=== PATIENT | female | born 1975 | race Caucasian/White ===

== ENCOUNTER 2020-08-25 10:41 | Emergency (ER) | payer OTHER, SELFPAY ==
[2020-08-25 10:46] VITALS: BP 102/65; PULSE 60; RESP 16; TEMP 36.8; O2SAT 97; BMI 21.6
--- NOTE | 2020-08-25 10:48 | DI.RAD.S_ITS ---
PROCEDURE: XR HAND LT MIN 3V INDICATIONS: 4th and 5th digit crush injury TECHNIQUE: 3 views of the hand(s) acquired. COMPARISON: None. FINDINGS: Bones: Nondisplaced fracture through the 4th phalangeal tuft. Carpal bones are normally aligned. No suspicious bony lesions. Soft tissues: No suspicious soft tissue calcifications. IMPRESSION: Nondisplaced fracture through the 4th phalangeal tuft. Dictated by: Zesu Deal M.D. on 08/25/2020 at 10:05 Approved by: Zeus Deal M.D. on 08/25/2020 at 10:07
--- NOTE | 2020-08-25 10:52 | ED.UPPEXIN ---
HPI - Extremity Injury (Upper) General Chief Complaint: Extremity Injury, Upper Stated Complaint: hurt left finger and pinky finger Time Seen by Provider: 08/25/20 10:49 Source: patient Mode of arrival: Ambulatory Limitations: no limitations History of Present Illness HPI narrative: Patient is a 44-year-old female who presents with left 4th finger pain which started yesterday. She actually has been working quite hard getting a rock wall and using an excavator have. However yesterday she picked up a very heavy rock and smashed most of her 4th and 5th finger. She is noticing some bruising it is extremely tender it hurts to move. She has a little bit of numbness at the very tip. She works as a massage therapist, and is right-hand dominant MD complaint: injury to: left and finger (4th) Related Data Previous Rx's Medication Instructions Recorded hydrocodone-acetaminophen 1 tab PO Q6H PRN #10 tab 08/25/20 Review of Systems Review of Systems Narrative: GENERAL: Denies chills,fever HEENT: Denies throat pain RESPIRATORY: Denies dyspnea, cough, wheezing CARDIOVASCULAR: Denies chest pain, palpitations GASTROINTESTINAL: Denies nausea, vomiting MUSCULOSKELETAL: See HPI SKIN: No rash, no laceration, no pruritus NEUROLOGIC: Denies weakness, dizziness, headache, numbness 8 point review of systems is negative except for those stated above and HPI Patient History Medical History Patient denies medical problems Exam Initial Vital Signs Initial Vital Signs: Vital Signs Temperature 98.2 F 08/25/20 10:46 Pulse Rate 60 08/25/20 10:46 Respiratory Rate 16 08/25/20 10:46 Blood Pressure 102/65 08/25/20 10:46 Pulse Oximetry 97 08/25/20 10:46 GENERAL: Well-appearing, well-nourished and in no acute distress. CARDIOVASCULAR: peripheral pulses in tact, cap refill <2 sec RESPIRATORY: No respiratory distress, speaks in full sentences without difficulty EXTREMITIES: Normal range of motion, no clubbing or edema. Neurovascularly intact Left hand 4th finger significant contusion is over D IP in nail beds but no subungual hematoma is. Slight numbness the distal tip. Pain with flexion of PIP PIP and MCP. No tenderness over the MCP. 5th finger she is able to move she has a small abrasion on the palmar side of the PIP. No laceration no drainage NEUROLOGICAL: Cranial nerves II through XII grossly intact. Normal gait and speech. SKIN: Warm, dry, no petechiae, no rashes or lesions. Course Orders Ordered: ED Orders 08/25/20 10:48 XR hand LT min 3V Stat Vital Signs Vital signs: Vital Signs - 8 hr 08/25/20 10:46 Temperature 98.2 F Pulse Rate 60 Respiratory Rate 16 Blood Pressure 102/65 Pulse Oximetry 97 MDM - Extremity Injury (Upper) Imaging Data Extremity x-ray #1: Radiologist's Impression: PROCEDURE: XR HAND LT MIN 3V INDICATIONS: 4th and 5th digit crush injury TECHNIQUE: 3 views of the hand(s) acquired. COMPARISON: None. FINDINGS: Bones: Nondisplaced fracture through the 4th phalangeal tuft. Carpal bones are normally aligned. No suspicious bony lesions. Soft tissues: No suspicious soft tissue calcifications. IMPRESSION: Nondisplaced fracture through the 4th phalangeal tuft. Dictated by: Zeus Deal M.D. on 08/25/2020 at 10:05 Discharge Plan Departure Patient Disposition: Home Clinical Impression: Fracture of phalanx of ring finger Qualifiers: Encounter type: initial encounter Fracture type: closed Phalanx: distal Fracture alignment: nondisplaced Laterality: left Qualified Code(s): S62.665A - Nondisplaced fracture of distal phalanx of left ring finger, initial encounter for closed fracture Instructions: Finger Fracture Activity Restrictions/Additional Instructions: *You have been diagnosed with left ring finger tuft fracture *What to do: You are broken at the very tip. Keep finger in splint ice 20-30 minutes at a time. This will likely take 4-6 weeks to heal completely *Continue to take medications as directed Ibuprofen 800 mg every 8 hours if needed for aiid-kj-vpwplvve pain Tylenol 650 mg every 4-6 hours if needed for naix-mn-szbytpky pain Brewster 1 tablet every 6 hours if needed for severe pain *Follow up with your primary care provider in 2-3 days, he may also try to follow up with orthopedics in 1-2 weeks *Return to ER if you should have increased swelling, decreased range of motion or any new, worsening or concerning symptoms CONTROLLED SUBSTANCE DISCHARGE (Narcotoic/benzodiazepine/Flexeril/Phenergan) 1. You have been prescribed narcotic medications, it does have acetaminophen/Tylenol/paracetamol in it, DO NOT TAKE MORE THAN 4,00mg in 24 hours of Tylenol. TRAMADOL DOES NOT CONTAIN TYLENOL 2. Please understand that we cannot provide further refills of narcotics, benzodiazepines or controlled substances through the ED and her pain management will need to be through your provider. 3. While on these medications you cannot drive or operate heavy machinery. 4. You cannot sign legal documents or perform any duties such as this. 5. As long as you're taking opiate pain medications he should also be taking a stool softener such as Colace, Dulcolax, MiraLAX or prune juice, to help avoid constipation. Prescriptions: New hydrocodone-acetaminophen 5-325 mg tablet 1 tab PO Q6H PRN (Reason: pain) Qty: 10 RF: 0 Referrals: [facility] [Provider Group] [facility] [Outside]
== END 2020-08-25 11:37 | disposition home or self-care (01) ==
PROVIDERS: Emergency Provider Emergency Medicine
DX: S62.665A Nondisplaced fracture of distal phalanx of left ring finger, initial encounter for closed fracture (principal); W23.0XXA Caught, crushed, jammed, or pinched between moving objects, initial encounter
CPT/HCPCS: 29130; 73130; 99283

== ENCOUNTER 2020-09-23 09:55 | Emergency (ER) | payer OTHER, SELFPAY ==
[2020-09-23 10:09] VITALS: BP 119/75; PULSE 52; RESP 14; TEMP 36.2; O2SAT 99
--- NOTE | 2020-09-23 10:12 | DI.RAD.S_ITS ---
PROCEDURE: XR FOOT RT MIN 3V INDICATIONS: heavy trailer vs foot TECHNIQUE: 3 views of the foot were acquired. COMPARISON: None. FINDINGS: Bones: No fractures or dislocations. No suspicious bony lesions. Soft tissues: No tibiotalar joint effusion. Achilles tendon appears normal. IMPRESSION: No fracture. If the patient's symptoms do not improve recommend followup radiographs in 10 days to assess for healing sclerosis/occult injury. Dictated by: Clay Caceres M.D. on 09/23/2020 at 12:07 Approved by: Clay Caceres M.D. on 09/23/2020 at 12:08
[2020-09-23] MEDS: ACETAMINOPHEN 325 MG TABLET 975 MG PO (11:38)
--- NOTE | 2020-09-23 11:39 | ED.LOWEXIN ---
HPI - Extremity Injury (Lower) General Chief Complaint: Extremity Injury, Lower Stated Complaint: Dropped Trailer full of gravel on right foot Time Seen by Provider: 09/23/20 11:36 Source: patient Mode of arrival: Ambulatory Limitations: no limitations History of Present Illness HPI Narrative: 45-year-old female here for evaluation of right foot pain. She states that yesterday she had a trailer full of gravel drop in hit the top of her right foot. Since that time she has had discomfort on the top the right foot. No other injuries from the event. It does hurt to walk in for her to move around. Related Data Home Medications Medication Instructions Recorded Confirmed No Known Home Medications 09/23/20 09/23/20 Allergies Allergy/AdvReac Type Severity Reaction Status Date / Time No Known Drug Allergies Allergy Verified 09/23/20 10:11 Review of Systems Constitutional Constitutional: Denies fever(s) and Denies headache(s) Eyes Eyes: Denies blurry vision ENT Ears, Nose, Mouth, and Throat: Denies headache(s) Musculoskeletal Comments: Right foot pain Integumentary/Breasts Skin/Breast: Denies rash Neurologic Neurologic: Denies behavioral changes and Denies headache(s) Psychiatric Psychiatric: Denies behavioral changes Hematologic/Lymphatic On Anticoagulants: No Allergic/Immunologic Allergic/Immunologic: Denies urticaria Patient History Medical History Patient denies medical problems Social History Smoking Status: Never smoker Smoking Status: Never smoker alcohol intake frequency: 0-2 drinks per day Substance Use Type: does not use Exam Initial Vital Signs Initial Vital Signs: Vital Signs Temperature 97.2 F L 09/23/20 10:09 Pulse Rate 52 L 09/23/20 10:09 Respiratory Rate 14 09/23/20 10:09 Blood Pressure 119/75 09/23/20 10:09 Pulse Oximetry 99 09/23/20 10:09 Const General: cooperative and comfortable Limitations: mental status not altered HENMT Head: normal to inspection and normocephalic Resp Effort & Inspection: normal respiratory effort Cardio Rate: regular rate Skin Other: Bruising on top of foot Neuro General: patient alert and patient awake Cognition: normal cognition Sensory Exam: no sensory deficits noted Extrem Other: Tenderness on the top of the midfoot otherwise right foot and ankle exam unremarkable. Psych Appearance: grossly normal and well kempt Course Orders Ordered: ED Orders 09/23/20 10:12 XR foot RT min 3V Stat Discontinued Medications Acetaminophen (Acetaminophen 325 Mg Tablet) 975 mg PO NOW ONE Stop: 09/23/20 11:34 Last Admin: 09/23/20 11:38 Dose: 975 mg Documented by: PRASHANT Vital Signs Vital signs: Vital Signs - 8 hr 09/23/20 10:09 Temperature 97.2 F L Pulse Rate 52 L Respiratory Rate 14 Blood Pressure 119/75 Pulse Oximetry 99 MDM - Extremity Injury (Lower) Imaging Data Extremity x-ray #1: Radiologist's Impression: [address] [id number] ReportSigned Patient: Sandrita WatersMR#: [id number]: [id number]:[id number]/Sex: 45 / FDate of Service: 09/23/20Loc: EDAccession Number: [id number] Procedure: XR foot RT min 3V Ordering Provider: Fredy Rivera D.O. PROCEDURE: XR FOOT RT MIN 3V INDICATIONS: heavy trailer vs foot TECHNIQUE: 3 views of the foot were acquired. COMPARISON: None. FINDINGS: Bones: No fractures or dislocations. No suspicious bony lesions. Soft tissues: No tibiotalar joint effusion. Achilles tendon appears normal. IMPRESSION: No fracture. If the patient's symptoms do not improve recommend followup radiographs in 10 days to assess for healing sclerosis/occult injury. Dictated by: Clay Caceres M.D. on 09/23/2020 at 12:07 Approved by: Clay Caceres M.D. on 09/23/2020 at 12:[address] [facility] Narrative Medical decision making narrative: There were no fractures on the x-ray. She was neurovascularly intact. No indication for splinting or crutches. She had to go to work so she did leave prior to receiving her discharge paperwork although she was told there was no fractures on the x-ray by nursing staff. Discharge Plan Departure Patient Disposition: Home Clinical Impression: Contusion of foot, right Instructions: How To Perform RICE (Rest, Ice, Compress, Elevate) Activity Restrictions/Additional Instructions: NO restriction on your activity. Contact your primary care primary care provider for follow up. Prescriptions: No Action No Known Home Medications RF: 0
== END 2020-09-23 12:22 | disposition home or self-care (01) ==
PROVIDERS: Emergency Provider Emergency Medicine
DX: S90.31XA Contusion of right foot, initial encounter (principal); W22.8XXA Striking against or struck by other objects, initial encounter
CPT/HCPCS: 73630; 99283

== ENCOUNTER 2022-10-29 11:09 | Emergency (ER) | payer OTHER, SELFPAY ==
[2022-10-29 11:12] VITALS: BP 96/58; PULSE 81; RESP 18; TEMP 37.3; O2SAT 99; BMI 22.6
--- NOTE | 2022-10-29 11:19 | DI.RAD.S_ITS ---
PROCEDURE: XR KNEE LT 3V INDICATIONS: fall, pain with weight bearing TECHNIQUE: 3 views of the knee were acquired. COMPARISON: None. FINDINGS: Bones: No fractures or dislocations. No suspicious bony lesions. Soft tissues: No joint effusion. No suspicious soft tissue calcifications. IMPRESSION: No acute abnormality of the left knee. Dictated by: Eric Acevedo M.D. on 10/29/2022 at 12:06 Approved by: Eric Acevedo M.D. on 10/29/2022 at 12:08
[2022-10-29] MEDS: KETOROLAC 10 MG TABLET PO (12:06)
--- NOTE | 2022-10-29 12:09 | DI.CT.S_ITS ---
PROCEDURE: CT LE LT W CON INDICATIONS: Left knee impact injury with twist, tibial plateau fx? TECHNIQUE: Noncontrast 1-1.5 mm axial sections acquired from the mid-patella to the proximal tibia, with coronal and sagittal reformats. COMPARISON: None. FINDINGS: Image quality: Excellent. Bones: No fracture or dislocation. Small tricompartmental osteophytes. Medial joint space narrowing. Subchondral sclerosis of the medial joint space. Soft tissues: Small suprapatellar joint effusion. IMPRESSION: 1. No acute fracture. 2. Tricompartmental degenerative changes with medial joint space narrowing. New line 3. Small suprapatellar joint effusion suggests possible internal derangement. Consider MRI. Dictated by: Eric Acevedo M.D. on 10/29/2022 at 13:14 Approved by: Eric Acevedo M.D. on 10/29/2022 at 13:17
--- NOTE | 2022-10-29 12:11 | ED_ITS ---
HPI - Extremity Injury (Lower) <TERI Craig - Last Filed: 10/29/22 13:35> General Chief Complaint: Extremity Injury, Lower Stated Complaint: fell LT knee bleeding head hit ground Time Seen by Provider: 10/29/22 11:54 Source: patient Mode of arrival: Wheelchair History of Present Illness HPI Narrative: This is a 47-year-old female who was out on the trail running when she had a trip and fall down onto her left knee and states that her left knee twisted when she fell and has had pain in her left knee and radiating up from her knee since the injury. She complains of swelling, abrasion, does not remember when her last tetanus was, states it is too painful to walk on and she has pain over the medial and lateral aspect. She denies numbness or tingling, weakness but states that it is very painful to try move. She denies history of injuries to this joint in the past. Related Data Previous Rx's Medication Instructions Recorded hydrocodone 5 mg-acetaminophen 325 1 tab PO BID PRN pain #10 tabs 10/29/22 mg tablet ibuprofen 600 mg tablet 600 mg PO Q8H PRN fever or pain 10/29/22 #30 tabs methocarbamol 500 mg tablet 500 mg PO TID PRN muscle spasm #20 10/29/22 tabs Allergies Allergy/AdvReac Type Severity Reaction Status Date / Time latex Allergy Rash Verified 10/29/22 11:18 Review of Systems <TERI Craig - Last Filed: 10/29/22 13:35> Review of Systems ROS Unobtainable: All systems reviewed & are unremarkable except as noted in HPI and below Patient History <TERI Craig - Last Filed: 10/29/22 13:35> Medical History Patient denies medical problems Social History Smoking Status: Never smoker Smoking Status: Never smoker alcohol intake frequency: 0-2 drinks per day Substance Use Type: does not use Exam <TERI Craig - Last Filed: 10/29/22 13:35> Narrative Exam Narrative: Reviewed vitals signs and nursing notes. General: Pleasant, sitting upright, in no acute distress, well groomed, afebrile HEENT: symmetrical facial expressions, moist mucous membranes, neck is supple MSK: moves all extremities, no weakness, normal tone, varus and valgus stress test with increased pain on valgus testing over the MCL and pain over the LCL during this same movement, negative Melinda's, no joint pain with axial load, range of motion is limited due to pain, palpable suprapatellar effusion, abr asion over the left knee, palpable patellar tendon, no laceration, icing knee at this time Skin: brisk capillary refill, without rash or wound Neuro: clear speech and normal cognition, A&O x3, GCS 15, no focal motor or sensation deficits Initial Vital Signs Initial Vital Signs: Vital Signs Temperature 99.2 F 10/29/22 11:12 Pulse Rate 81 10/29/22 11:12 Respiratory Rate 18 10/29/22 11:12 Blood Pressure 96/58 L 10/29/22 11:12 Pulse Oximetry 99 10/29/22 11:12 Oxygen Delivery Method Room Air 10/29/22 11:12 <Kana Bruno DO - Last Filed: 10/30/22 08:49> Initial Vital Signs Initial Vital Signs: Vital Signs Temperature 99.2 F 10/29/22 11:12 Pulse Rate 81 10/29/22 11:12 Respiratory Rate 18 10/29/22 11:12 Blood Pressure 96/58 L 10/29/22 11:12 Pulse Oximetry 99 10/29/22 11:12 Oxygen Delivery Method Room Air 10/29/22 11:12 Procedures <TERI Craig - Last Filed: 10/29/22 13:35> Orthopedic Splinting/Casting Injury #1: Side: left Lower Extremity Injury Location: knee Lower Extremity Immobilizer: knee immobilizer Post splinting neuro exam: intact Post splinting vascular exam: intact Placed by: Nursing Course <TERI Craig - Last Filed: 10/29/22 13:35> Orders Ordered: Discontinued Medications Hydrocodone Bitart/Acetaminophen (Hydrocodone/Acet 5/325 Tablet) 1 tab PO NOW ONE Stop: 10/29/22 12:06 Last Admin: 10/29/22 12:24 Dose: 1 tab Documented By: KB Bacitracin (Bacitracin Oint 0.9 Gm Pckt) 1 applic TOP NOW ONE Stop: 10/29/22 12:06 Last Admin: 10/29/22 12:24 Dose: 1 applic Documented By: SOHAM Diphtheria/Tetanus/Acell Pertussis (Tet,Diph,Pertuss(Acell),Vac/Pf 0.5 Ml Syringe) 0.5 ml IM .ONCE ONE Stop: 10/29/22 12:06 Last Admin: 10/29/22 12:24 Dose: 0.5 ml Documented By: SOHAM Ketorolac Tromethamine (Ketorolac 10 Mg Tablet) 10 mg PO NOW ONE Stop: 10/29/22 12:00 Last Admin: 10/29/22 12:06 Dose: 10 mg Documented By: SOHAM Lidocaine/Prilocaine (Lidocaine/Prilocaine 5 Gm) 5 gm TOP NOW ONE Stop: 10/29/22 12:16 Last Admin: 10/29/22 12:24 Dose: 5 gm Documented By: SOHAM Vital Signs Vital signs: Vital Signs - 8 hr 10/29/22 11:12 10/29/22 13:16 Temperature 99.2 F Pulse Rate 81 63 Respiratory Rate 18 18 Blood Pressure 96/58 L 125/58 L Pulse Oximetry 99 95 Oxygen Delivery Method Room Air Room Air <Kana Bruno DO - Last Filed: 10/30/22 08:49> Orders Ordered: Discontinued Medications Hydrocodone Bitart/Acetaminophen (Hydrocodone/Acet 5/325 Tablet) 1 tab PO NOW ONE Stop: 10/29/22 12:06 Last Admin: 10/29/22 12:24 Dose: 1 tab Documented By: SOHAM Bacitracin (Bacitracin Oint 0.9 Gm Pckt) 1 applic TOP NOW ONE Stop: 10/29/22 12:06 Last Admin: 10/29/22 12:24 Dose: 1 applic Documented By: SOHAM Diphtheria/Tetanus/Acell Pertussis (Tet,Diph,Pertuss(Acell),Vac/Pf 0.5 Ml Syringe) 0.5 ml IM .ONCE ONE Stop: 10/29/22 12:06 Last Admin: 10/29/22 12:24 Dose: 0.5 ml Documented By: SOHAM Ketorolac Tromethamine (Ketorolac 10 Mg Tablet) 10 mg PO NOW ONE Stop: 10/29/22 12:00 Last Admin: 06/08/23 12:06 Dose: 10 mg Documented By: SOHAM Lidocaine/Prilocaine (Lidocaine/Prilocaine 5 Gm) 5 gm TOP NOW ONE Stop: 10/29/22 12:16 Last Admin: 10/29/22 12:24 Dose: 5 gm Documented By: SOHAM Vital Signs Vital signs: Vital Signs - 8 hr 10/29/22 11:12 10/29/22 13:16 Temperature 99.2 F Pulse Rate 81 63 Respiratory Rate 18 18 Blood Pressure 96/58 L 125/58 L Pulse Oximetry 99 95 Oxygen Delivery Method Room Air Room Air MDM - Extremity Injury (Lower) <Sherry Cox, [facility] - Last Filed: 10/29/22 13:35> Imaging Data Extremity x-ray #1: Radiologist's Impression: PROCEDURE:? XR KNEE LT 3V ? INDICATIONS:? fall, pain with weight bearing ? TECHNIQUE:? 3 views of the knee were acquired.? ? COMPARISON:? None. ? FINDINGS:? ? Bones:? No fractures or dislocations.? No suspicious bony lesions.? ? Soft tissues:? No joint effusion.? No suspicious soft tissue calcifications.? ? ? IMPRESSION:? No acute abnormality of the left knee. ? ? Dictated by: Eric Acevedo M.D. on 10/29/2022 at 12:06 ? ? Approved by: Eric Acevedo M.D. on 10/29/2022 at 12:08 ? CT left knee: Radiologist's Impression: PROCEDURE:? CT LE LT W CON ? INDICATIONS:? Left knee impact injury with twist, tibial plateau fx? ? TECHNIQUE:? Noncontrast 1-1.5 mm axial sections acquired from the mid-patella to the proximal tibia, with coronal and sagittal reformats.? ? COMPARISON:? None. ? FINDINGS:? Image quality:? Excellent.? ? Bones:? No fracture or dislocation.? Small tricompartmental osteophytes.? Medial joint space narrowing.? Subchondral sclerosis of the medial joint space. ? Soft tissues:? Small suprapatellar joint effusion. ? ? IMPRESSION:? 1. No acute fracture. 2. Tricompartmental degenerative changes with medial joint space narrowing.? New line 3. Small suprapatellar joint effusion suggests possible internal derangement.? Consider MRI. ? ? Dictated by: Eric Acevedo M.D. on 10/29/2022 at 13:14 ? ? Approved by: Eric Acevedo M.D. on 10/29/2022 at 13:17 ? MDM Narrative Medical decision making narrative: Chief Complaint: Fall onto left knee Primary historian: Patient acute Multiple etiologies for patient's complaint considered including, but not limited to: Fracture acute fracture, ligamental injury, muscular strain, avulsion fracture, tibial plateau fracture, knee effusion, quadriceps injury, patellar fracture/patellar tendon injury, proximal fibular injury, meniscal injury I have independently reviewed the patient's vital signs and nursing notes as well as prior records if available. My interpretation of imaging: Left knee x-rays negative for acute osseous abnormality but effusion is present both on x-ray and on physical exam, ordered CT of patient's left knee due to pain out of proportion, increased pain with varus and valgus testing and palpable popping sensation with movement CT of her left knee shows no acute fracture, tricompartmental degenerative changes with medial joint space narrowing, suprapatellar joint effusion suggesting possible internal derangement. Course of care: This patient presents emergency department with left knee pain after a fall suspicious for ligamental injury, meniscus injury, acute tibial plateau fracture and a knee effusion. Patient is able to flex and extend but is limited due to pain, she has an abrasion but no current bleeding. Her tetanus vaccination was updated today, wound care was completed and bacitracin was applied, she was fitted in a knee immobilizer, CT of the left knee was obtained patient fitted in a knee immobilizer. CT is negative for fracture. Patient did hit her head, has symptoms of concussion which include brain fog and fatigue. She denies vision changes, weakness her speech is clear, she is ambulatory with crutches her knee immobilizer if not bearing weight. There is no evidence of compartment syndrome, bearing weight is very painful and patient states difficulty. Social considerations that may affect disposition: none Questions are addressed and there is agreement with the plan and for follow-up. I consulted with the ED attending physician Dr. Bruno as needed for higher level of care considerations and they were available for discussion and recommendations regarding plan of care and diagnostic testing. Patient is appropriate for outpatient management. Discharge Plan Departure Patient Disposition: Home Clinical Impression: Effusion of left knee, Abrasion Left knee injury Qualifiers: Encounter type: initial encounter Qualified Code(s): S89.92XA - Unspecified injury of left lower leg, initial encounter Concussion Qualifiers: Encounter type: initial encounter Loss of consciousness presence/duration: without LOC Qualified Code(s): S06.0X0A - Concussion without loss of consciousness, initial encounter Instructions: Concussion, How to Use an Elastic Bandage-Knee Sprain, DI for Knee Sprain, DI for Knee Effusion Activity Restrictions/Additional Instructions: *You have been diagnosed with likely a ligamental injury of your left knee, you have an effusion meaning you fluid within the joint which happens sometimes due to meniscal injury and happens with ligamental injury. Hopefully this is only a partial tear or no ligament injury at all. Please use ibuprofen and Tylenol, topical Voltaren gel can be helpful, and pain pills as needed for severe pain. Keep your knee in an immobilizer, it is okay to use an Nicolás bandage to help support this, you can sleep in a knee immobilizer. Ice it frequently, call to schedule an appointment with [facility] for follow-up next week. *What to do: *Please continue to take your regular medications as directed. [x ] New medication prescriptions sent to your pharmacy: [ [facility]] [ ] New medication written as a paper prescription [ ] No new medications given *Please call and schedule follow up with your primary care provider in 2-3 days, at least for an update. Let them know you were seen in the Emergency Department for the above problem. We will electronically transmit a record of today's note if your PCP or specialist is in our system. *If you do not have a primary care provider please contact [phone] to establish care with one of the [facility] primary care providers. *Return to the Emergency Department for worsening symptoms, inability to keep liquids down, fever greater than 101F, chills, or other concerning symptom. Prescriptions: New hydrocodone-acetaminophen 5-325 mg tablet 1 tab PO BID PRN (Reason: pain) Qty: 10 0RF ibuprofen 600 mg tablet 600 mg PO Q8H PRN (Reason: fever or pain) Qty: 30 0RF methocarbamol 500 mg tablet 500 mg PO TID PRN (Reason: muscle spasm) Qty: 20 0RF Referrals: [facility] [Provider Group] Miscellaneous,MD Sara [Primary Care Provider] - Stand Alone Forms: Patient Portal/API <Kana Bruno DO - Last Filed: 10/30/22 08:49> Cosign ED Attending Larry Attestation: I was immediately available in the department for consultation. Documentation has been reviewed. I agree with assessment and plan.
[2022-10-29] MEDS: TET,DIPH,PERTUSS(ACELL),VAC/PF 0.5 ML SYRINGE IM (12:24)
[2022-10-29] MEDS: LIDOCAINE/PRILOCAINE 5 GM TOP (12:24)
[2022-10-29] MEDS: BACITRACIN OINT 0.9 GM PCKT 1 APPLIC TOP (12:24)
[2022-10-29] MEDS: HYDROCODONE/ACET 5/325 TABLET 1 TAB PO (12:24)
[2022-10-29 13:16] VITALS: BP 125/58; PULSE 63; RESP 18; O2SAT 95
== END 2022-10-29 13:35 | disposition home or self-care (01) ==
PROVIDERS: Emergency Provider Nurse Practitioner Critical Care Medicine
DX: S06.0X0A Concussion without loss of consciousness, initial encounter (principal); S80.212A Abrasion, left knee, initial encounter; M25.462 Effusion, left knee; W01.0XXA Fall on same level from slipping, tripping and stumbling without subsequent striking against object, initial encounter; Z23 Encounter for immunization
CPT/HCPCS: 73562; 73700; 90471; 99284; 90715

== ENCOUNTER → 2024-03-07 16:38 | Outpatient (CLI) | payer OTHER, SELFPAY ==
[2024-03-07 17:03] LABS: Add Manual Diff / Slide Review NO; Basophils Absolute Auto 100 /uL (0-100); Basophils Percent Auto 1.2 % (0-2); Eosinophils Absolute Auto 300 /uL (0-450); Eosinophils Percent Auto 3.7 % (2-4); Hemoglobin 13.2 g/dL (12.0-16.0); Lymphocytes Absolute Auto 2600 /uL (1100-4500); Lymphocytes Percent Auto 31.8 % (25-40); Mean Corpuscular HGB Conc 33.9 % (30-36); Mean Corpuscular Volume 88.3 fL (80-100); Monocytes Absolute Auto 500 /uL (0-900); Neutrophils Absolute Auto 4700 /uL (1500-7000); Neutrophils Percent Auto 57.3 % (50-75); Platelet Count 308 X10^3/uL (150-400); Red Blood Cell Count 4.42 X10^6/uL (4.0-5.2); Red Cell Distribution Width 13.7 % (11.6-14.8); White Blood Cell Count 8.1 X10^3/uL (4.5-11.0)
[2024-03-07 18:00] LABS: Alanine Aminotransferase 31 IU/L (<35); Albumin 4.7 g/dL (3.5-5.0); Albumin Globulin Ratio 1.8 (1.0-2.8); Alkaline Phosphatase 50 U/L (38-126); Aspartate Aminotransferase 25 IU/L (14-36); BUN Creatinine Ratio 15.4 (6-22); Bilirubin Total 0.5 mg/dL (0.2-1.3); Blood Urea Nitrogen 12 mg/dL (7-17); Calcium 9.8 mg/dL (8.4-10.2); Carbon Dioxide 26 mmol/L (22-32); Chloride 103 mmol/L (98-107); Cholesterol 241 mg/dL (140-199); Estimated Glomerular Filt Rate > 60 mL/min (>60); Globulin 2.6 g/dL (1.7-4.1); Glucose 88 mg/dL (70-100); HDL Cholesterol 98 mg/dL (40-60); HEMOLYSIS < 15 (0-50); LDL Cholesterol Calculated 117 mg/dL (<100); Potassium 4.3 mmol/L (3.4-5.1); Sodium 135 mmol/L (137-145); Total Protein 7.3 g/dL (6.3-8.2); Triglycerides 130 mg/dL (35-150)
[2024-03-07 18:17] LABS: Follicle Stimulating Hormone 1.57 mIU/mL; Luteinizing Hormone 2.32 mIU/mL
[2024-03-07 18:18] LABS: Free T3, Triiodothyronine Free 3.55 pg/mL (2.77-5.27); Free T4, Direct Thyroxine 0.92 ng/dL (0.78-2.19)
[2024-03-07 18:31] LABS: Thyroid Stimulating Hormone 0.904 uIU/mL (0.47-4.68)
[2024-03-07 18:33] LABS: Testosterone 34.2 ng/dL (5.71-77.0)
== END ==
PROVIDERS: Referring Provider Specialist; Visit Provider Specialist
DX: R50.9 Fever, unspecified (principal); R53.83 Other fatigue; Z51.81 Encounter for therapeutic drug level monitoring
CPT/HCPCS: 36415; 80053; 80061; 82672; 83001; 83002; 84144; 84403; 84439; 84443; 84481; 85025

== ENCOUNTER 2024-07-26 11:32 | Emergency (ER) | payer MEDICAID, SELFPAY ==
[2024-07-26 11:49] VITALS: BP 108/79; PULSE 64; RESP 16; TEMP 36.9; O2SAT 100; BMI 23.8
--- NOTE | 2024-07-26 11:54 | DI.RAD.S_ITS ---
PROCEDURE: XR SHOULDER LT MIN 2V INDICATIONS: pain after slip/popping TECHNIQUE: 3 views of the shoulder were acquired. COMPARISON: None. FINDINGS: Bones: No fractures or dislocations. No suspicious bony lesions. Visualized ribs appear intact. Soft tissues: No suspicious soft tissue calcifications. IMPRESSION: No acute bony abnormality. Dictated by: Perry Turk M.D. on 07/26/2024 at 12:10 Approved by: Perry Turk M.D. on 07/26/2024 at 12:11
--- NOTE | 2024-07-26 11:58 | ED_ITS ---
<Statement entered by Tapan Peck DO - 07/26/24 12:48> Dr. Peck: I was immediately available in the department for consultation. I did not actually see the patient. HPI - Extremity Injury (Upper) General Chief Complaint: Extremity Injury, Upper Stated Complaint: L shoulder injury/fall Time Seen by Provider: 07/26/24 11:58 Source: patient Mode of arrival: Ambulatory History of Present Illness HPI narrative: This is a 48-year-old female presenting to the emergency department due toLeft shoulder pain. Patient was walking and slipped in the mud when she threw her left arm up in the air and she was too sharp pain in her left shoulder just after that. This happened about 2 hours ago. She denies any numbness in her distal extremities. Pains full range of motion of the elbow and wrist and fingers. She does have pain with range of motion at the left shoulder. There was no direct trauma to the shoulder. Related Data Home Medications Medication Instructions Recorded Confirmed doxycycline hyclate 50 mg capsule 50 mg PO BID 05/03/24 05/03/24 Previous Rx's Medication Instructions Recorded albuterol sulfate 90 mcg/actuation 2 puff inhalation Q4-6H PRN 05/03/24 aerosol inhaler shortness of breath or wheezing #6.7 grams amoxicillin 875 mg-potassium 1 tab PO Q12H #20 tabs 05/03/24 clavulanate 125 mg tablet benzonatate 200 mg capsule 200 mg PO TID PRN cough #30 caps 05/03/24 guaifenesin 1,200 mg tablet, 1,200 mg PO Q12H #30 tabs 05/03/24 extended release 12 hr Allergies Allergy/AdvReac Type Severity Reaction Status Date / Time latex Allergy Rash Verified 05/03/24 09:51 Review of Systems Review of Systems Narrative: GENERAL: Denies chills, fatigue, malaise, fever, sweats. HEENT: Denies sinus pain, ear pain, sore throat, difficulty swallowing, dizziness. RESPIRATORY: Denies dyspnea, cough, wheezing, hemoptysis, sputum. CARDIOVASCULAR: Denies chest pain, palpitations, orthopnea, edema, GASTROINTESTINAL: Denies nausea, vomiting, abdominal pain, diarrhea, constipation, melena. : Denies dysuria, frequency, incontinence, hematuria, urinary retention. MUSCULOSKELETAL: Reports left shoulder pain, otherwisedenies weakness, joint pain, or bony pain SKIN: Denies rash, skin lesions, or other NEUROLOGIC: Denies weakness, headache, numbness, change in speech, confusion, seizures, incoordination. PSYCHIATRIC: No concerning psychosocial issues. 12 point review of systems is negative except for those stated above Patient History Medical History Patient denies medical problems Social History (System 03/08/24 @ 07:36 by Angi Knapp) Smoking Status: Never smoker Smoking Status: Never smoker alcohol intake frequency: 0-2 drinks per day Exam Narrative Exam Narrative: GENERAL: Well-developed patient, in mild distress. HEAD: Atraumatic. Normocephalic. EYES: Pupils equal round and reactive. Extraocular motions intact. No scleral icterus. No injection or drainage. ENT: Nose without bleeding, purulent drainage. Throat without erythema, tonsillar hypertrophy or exudate. Airway patent. NECK: Trachea midline. Non tender EXTREMITIES: mild tenderness to palpation to the left anterior shoulder. Active and passive range motion decreased secondary to pain. Neurovascularly intact throughout. Full extension and flexion of the elbow, fingers, and hand. NEURO: AOx3. SKIN: No rash or erythema of visible areas Initial Vital Signs Initial Vital Signs: Vital Signs Temperature 98.5 F 07/26/24 11:49 Pulse Rate 64 07/26/24 11:49 Respiratory Rate 16 07/26/24 11:49 Blood Pressure 108/79 07/26/24 11:49 Pulse Oximetry 100 07/26/24 11:49 Oxygen Delivery Method Room Air 07/26/24 11:49 Course Orders Ordered: ED Orders 07/26/24 11:54 XR shoulder LT min 2V Stat Vital Signs Vital signs: Vital Signs - 8 hr 07/26/24 11:49 07/26/24 12:04 Temperature 98.5 F Pulse Rate 64 Pulse Rate [Left Radial] 66 Respiratory Rate 16 Blood Pressure 108/79 Pulse Oximetry 100 Oxygen Delivery Method Room Air MDM - Extremity Injury (Upper) MDM Narrative Medical decision making narrative: ED course: this is a 48-year-old female presenting to the emergency department due to suspected sprain shoulder. She was neurovascularly intact throughout. X-ray showed no fractures or any kind of separation in the shoulder. Recommended supportive care. Patient declined a sling and we will follow up with her established orthopedist the pain continues. CC: Shoulder pain Complicating co-morbidities: none Data collected from: Previous notes Medical records reviewed: Patient was last seen in this emergency department roughly a year and a half ago due to walking a dog and tripping and falling. No pertinent medical history. Differential considered, but not limited to: jointSeparation, fracture, sprain, strain Exam documented above, pertinent findings include: neurovascularly intact throughout Lab Test results independently reviewed as above. Pertinent findings: none obtained Imaging studies independently reviewed: x-rays unremarkable Scores Used: None MIPS Elements: None Consultations: None Treatments: none Re-evaluations: none Discussion: Discussed plan with the patient was comfortable with the plan Diagnosis: shoulder sprain Disposition: see below, along with detailed discharge instructions that have been reviewed with patient as well as indications for ED re-evaluation and additional outpatient follow up Discharge Plan Departure Patient Disposition: Home Clinical Impression: Shoulder sprain Instructions: DI for Shoulder Sprain Activity Restrictions/Additional Instructions: Thank you for coming to the [facility] Emergency Department today. as we discussed the x-rays shoulder showed no abnormalities. You may use a sling as needed for comfort. Otherwise I recommend rest, light movement as tolerated by pain, and ibuprofen. You may also follow up with the established orthopedist if the pain continues. Please return to the emergency department if you develop any Numbness, weakness unrelated to the pain,or any other concerning signs or symptoms. I hope you feel better soon. Please follow up with your primary care provider within a week if your symptoms continue. If you do not have a primary care provider please contact the [facility] Res[facility] urce line at [phone]. They will ask some questions about your medical history and help you get set up with a provider in the community. Prescriptions: No Action doxycycline hyclate 50 mg capsule 50 mg PO BID amoxicillin-pot clavulanate 875-125 mg tablet 1 tab PO Q12H Qty: 20 0RF Rx Instructions: Take 7-10 days benzonatate 200 mg capsule 200 mg PO TID PRN (Reason: cough) Qty: 30 0RF guaifenesin 1,200 mg tablet extended release 12hr 1,200 mg PO Q12H Qty: 30 0RF albuterol sulfate 90 mcg/actuation HFA aerosol inhaler 2 puff inhalation Q4-6H PRN (Reason: shortness of breath or wheezing) Qty: 6.7 0RF Stand Alone Forms: Patient Portal/API/Survey
[2024-07-26 12:04] VITALS: PULSE 66
== END 2024-07-26 12:29 | disposition home or self-care (01) ==
PROVIDERS: Emergency Provider Physician Assistant Medical
DX: S43.402A Unspecified sprain of left shoulder joint, initial encounter (principal); W01.0XXA Fall on same level from slipping, tripping and stumbling without subsequent striking against object, initial encounter
CPT/HCPCS: 73030; 99283

== ENCOUNTER → 2024-08-16 07:15 | Outpatient (CLI) | payer OTHER, SELFPAY ==
--- NOTE | 2024-08-16 07:16 | DI.MRI.S_ITS ---
PROCEDURE: MR SHOULDER LT WO CON INDICATIONS: INJURY TO LEFT ROTATOR CUFF TECHNIQUE: Noncontrast oblique coronal T2 fast spin echo with fat saturation, oblique sagittal T1 spin echo and T2 fast spin echo with fat saturation, axial T1 spin echo and T2 fast spin echo with fat saturation through the shoulder. COMPARISON: None. FINDINGS: Image quality: Excellent. Rotator cuff: There is low-grade intrasubstance and bursal surface tearing of the mid and posterior supraspinatus as well as the anterior infraspinatus tendon at the humeral insertion site. Subscapularis and teres minor tendons are intact. No rotator cuff atrophy. Bones and bursae: No bone marrow contusions or fractures. Mild glenohumeral and acromioclavicular joint degeneration. The acromion demonstrates conventional anatomy, without an os acromiale. No pathologic subacromial-subdeltoid or subcoracoid bursal fluid is present. Capsule and soft tissues: There is possible undercutting of the mid posterior labrum. The long head of the biceps tendon demonstrates normal location and morphology. The rotator interval appears normal, without fibrosis. The coracohumeral ligament is normal in thickness. IMPRESSION: 1. Low-grade tearing of the supraspinatus and infraspinatus tendons. 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 3. Possible posterior labral tearing. Dictated by: Gregorio Hitchcock M.D. on 08/16/2024 at 11:32 Approved by: Gregorio Hitchcock M.D. on 08/16/2024 at 11:35
== END ==
PROVIDERS: Referring Provider Physician Assistant; Visit Provider Physician Assistant
DX: S46.012A Strain of muscle(s) and tendon(s) of the rotator cuff of left shoulder, initial encounter (principal); M19.012 Primary osteoarthritis, left shoulder; X58.XXXA Exposure to other specified factors, initial encounter
CPT/HCPCS: 73221